=== PATIENT | female | born 1975 | race Asian ===

== ENCOUNTER 2020-11-07 11:32 | Outpatient (CLI) | payer BC, OTHER ==
[2020-11-07 12:04] LABS: *BILIRUBIN,URIN NEGATIVE (NEGATIVE); *BLOOD, URINE NEGATIVE (NEGATIVE); *CLARITY,URINE CLEAR (CLEAR); *COLOR,URINE YELLOW (YELLOW); *KETONES,URINE NEGATIVE (NEGATIVE); *UROBILINOGEN,URINE 0.2 E.U./dl (NORMAL); LEUKOCYTE ESTERASE ,URINE NEGATIVE (NEGATIVE); NITRITE, URINE NEGATIVE (NEGATIVE); UGLUCOSE NEGATIVE (NEGATIVE)
[2020-11-07 12:08] LABS: BASOPHILS % (AUTO) 0.7 % (0.0-2.0); EOSINOPHILS # (AUTO) 0.2 K/uL (0.0-0.7); EOSINOPHILS % (AUTO) 4.1 % (0.0-7.0); HEMATOCRIT 44.2 % (31.2-41.9); HEMOGLOBIN 14.8 g/dL (10.9-14.3); LYMPHOCYTES # (AUTO) 1.1 K/uL (20.0-40.0); LYMPHOCYTES % (AUTO) 27.5 % (20.5-51.5); MEAN CORPUSCULAR HGB CONC 33 g/dL (32.3-35.6); MEAN CORPUSCULAR VOLUME 89.7 fL (75.5-95.3); MONOCYTES # (AUTO) 0.3 K/uL (2.0-10.0); MONOCYTES % (AUTO) 6.5 % (0.0-11.0); NEUTROPHILS # (AUTO) 2.4 K/uL (1.8-8.9); NEUTROPHILS % (AUTO) 61.2 % (38.5-71.5); PLATELET COUNT (AUTO) 272 K/uL (179-408); RED BLOOD CELL COUNT(AUTO) 4.93 MIL/uL (3.63-4.92)
[2020-11-07 12:09] LABS: BILIRUBIN,TOTAL 0.4 mg/dL (0.2-1.0); CREATININE 0.6 mg/dL (0.6-1.3); POTASSIUM 3.7 mmol/L (3.5-5.1); TOTAL PROTEIN, SERUM 8.2 g/dL (6.4-8.2)
[2020-11-07 12:16] LABS: THYROID STIMULATING HORMONE 0.884 mIU/mL (0.358-3.740)
[2020-11-08 07:07] LABS: FOLLICLE STIMULATION HORMONE 8.8 mIU/mL (.); LUTEINIZING HORMONE 20.4 mIU/mL (.); PROLACTIN 5.2 ng/mL (4.8-23.3)
== END 2020-11-07 23:59 | disposition home or self-care (01) ==
LOC: LAB 11:32
PROVIDERS: ATTEND Family Medicine
DX: N92.6 Irregular menstruation, unspecified (principal); R10.9 Unspecified abdominal pain; Z00.01 Encounter for general adult medical examination with abnormal findings
CPT/HCPCS: 36415; 82306; 83001; 83002; 84146; 84443; 85025; 86677

== ENCOUNTER → 2020-11-17 | Outpatient (CLI) | payer BC, OTHER ==
[2020-11-17 11:52] LABS: BILIRUBIN,DIRECT 0.1 mg/dL (0.0-0.2); BILIRUBIN,TOTAL 0.4 mg/dL (0.2-1.0); TOTAL PROTEIN, SERUM 8.4 g/dL (6.4-8.2)
[2020-11-18 06:06] LABS: HEPATITIS A AB, TOTAL Positive (Negative); HEPATITIS B SURFACE AB Reactive (.); HEPATITIS B SURFACE AG Negative (Negative)
== END | disposition home or self-care (01) ==
LOC: LAB 10:57
PROVIDERS: ATTEND Family Medicine
DX: E78.5 Hyperlipidemia, unspecified (principal); N91.5 Oligomenorrhea, unspecified; R10.9 Unspecified abdominal pain
CPT/HCPCS: 36415; 86706; 86708; 86803; 87340